=== PATIENT | female | born 1965 | race Caucasian/White ===

== ENCOUNTER → 2020-09-24 | Outpatient (CLI) | payer OTHER ==
--- NOTE | 2020-09-24 14:36 | KCIC ---
Bilateral digital screening mammograms: Reason for examination: Routine screening. Comparison is made to previous study dated 04/16/2009. Interpretation was made with the benefit of CAD. The skin and nipples show no abnormalities. No abnormal axillary lymph nodes are seen. The breast par enchyma shows scattered fibroglandular density. There has been parenchymal involution since previous exam. (Breast density: Category B.) There are multiple small nodular densities present bilaterally in the breasts, right greater than left. These may represent cystic or fibrocystic nodules but further evaluation with ultrasound is recommended. Benign-appearing calcifications are seen. IMPRESSION: Small nodular parenchymal densities bilaterally, right greater than left. Recommend further evaluatio n with ultrasound. BI-RADS Category 0: Incomplete. Needs additional imaging evaluation. "Our facility is accredited by the [employer] Mammography [employer]." This patient's information has been entered into a reminder system for the patient to be notified wit h the results of her examination and a target date for the next mammogram. Electronically signed by: Jimena Harman MD (09/24/2020 2:33 PM) [id number]
== END ==
LOC: KCIC MAMMO 10:16
PROVIDERS: ATTEND Family Medicine
DX: Z12.31 Encounter for screening mammogram for malignant neoplasm of breast (principal); N63.20 Unspecified lump in the left breast, unspecified quadrant; N63.10 Unspecified lump in the right breast, unspecified quadrant
CPT/HCPCS: 77067

== ENCOUNTER → 2020-10-08 | Outpatient (CLI) | payer OTHER ==
--- NOTE | 2020-10-08 08:55 | KCIC ---
EXAM: Bilateral breast sonogram. HISTORY: 54-year-old female presents for evaluation of nodularity within both breasts demonstrated on a mammogram dated 09/24/2020. TECHNIQUE: Sonographic imaging of both breasts including all 4 quadrants of the report regions was pe rformed. COMPARISON: 09/24/2020. FINDINGS: Sonographic imaging of the right breast demonstrates multiple small simple and complicated cysts and benign fibrocystic lesions. For reference purposes, there is a 5 mm complicated cyst with i nternal echoes and lobulated margins at the 12:00 position 5 cm from the nipple. There is a 3 mm etta gn fibrocystic lesion at the 12:00 position 3 cm the nipple. There is an 8 mm suspected intramammary lymph node at the 1:00 position 6 cm for the nipple. There are tiny 3 mm complicated cyst or fibrocys tic lesions at the 4 4:00 and 6:00 positions. There is a 4 mm suspected complicated cyst at the 7:00 position 4 cm from the nipple. There is a 7 mm suspected complicated cyst or fibrocystic lesion at th e 11:00 position 6 cm from the nipple. There is no suspicious axillary lymph node. Sonographic imaging of the left breast demonstrates multiple simple and complicated cysts and benign- appearing fibers cystic lesions. For reference purposes, there is a 10 mm suspected benign fibrocysti c lesion at the 3:00 position 6 cm from the nipple. There is a similar-appearing smaller benign fibro cystic lesion measuring 6 mm at the 11:00 position 6 cm from the nipple. There is no suspicious axill claire lymph node. IMPRESSION: 1. Multiple benign-appearing cystic and fibrocystic lesions within both breasts and suspected small i ntramammary lymph node within the right breast, likely accounting for areas of nodularity on the rece nt screening mammogram. There is no convincing suspicious sonographic finding. 2. BI-RADS Category 3: Probably benign finding(s). Progression or short-term follow-up with a bilater al breast sonogram in 6 months is recommended to confirm stability of the aforementioned findings. Electronically signed by: Sherin Pink MD (10/08/2020 8:52 AM) [email or web address]
== END ==
LOC: KCIC US 08:00
PROVIDERS: ATTEND Family Medicine
DX: R92.2 Inconclusive mammogram (principal)
CPT/HCPCS: 76641